=== PATIENT | female | born 1985 | race African-American/Black ===

== ENCOUNTER 2018-02-24 11:19 | Emergency (ER) | payer SELFPAY ==
[~2018-02-24] VITALS: Ht 154.9 cm; Wt 77.3 kg
[2018-02-24] MEDS ORDERED: ACETAMINOPHEN 500 MG TABLET PO ONE (13:00)
[2018-02-24] MEDS ORDERED: CefTRIAXone SODIUM 1 GM/VIAL IM ONE (13:30)
[2018-02-24] MEDS ORDERED: LIDOCAINE/PF 1% 2 ML VIAL IM ONE (13:30)
[2018-02-24 14:01] VITALS: BP 122/84
== END 2018-02-24 14:03 | disposition home or self-care (01) ==
LOC: EMS 11:21
DX: J18.9 Pneumonia, unspecified organism (principal)
CPT/HCPCS: 71046; 96372; 99284; J0696; J3490